=== PATIENT | female | born 1990 | race Caucasian/White ===

== ENCOUNTER 2019-07-15 15:49 | Emergency (ER) | payer SELFPAY ==
[~2019-07-15] VITALS: Ht 172.7 cm; Wt 58.3 kg
[~2019-07-15 15:49] MED LIST: CYCL10TA7 PO; IBUP-1542 PO
[2019-07-15 15:59] VITALS: BP 124/82; PULSE 90; RESP 20; Ht 172.7 cm; Wt 58.3 kg
[2019-07-15] MEDS ORDERED: KETOROLAC 30 MG INJ IM STA (16:38)
== END 2019-07-15 17:26 | disposition home or self-care (01) ==
LOC: FTE 15:49
DX: M54.5 Low back pain (principal)
CPT/HCPCS: 81003; 81025; 96372; 99284; J1885